=== PATIENT | male | born 1965 | race Caucasian/White ===

== ENCOUNTER → 2017-12-06 12:29 | Outpatient (CLI) | payer OTHER, SELFPAY | DX: Z23 Encounter for immunization (principal) | CPT/HCPCS: 90471; 90686 ==

== ENCOUNTER → 2018-04-16 15:20 | Outpatient (CLI) | payer OTHER, SELFPAY ==
--- NOTE | 2018-04-16 | DI.RAD.S_ITS ---
PROCEDURE: XR HAND RT MIN 3V INDICATIONS: RIGHT HAND PAIN TECHNIQUE: 3 views of the hand(s) acquired. COMPARISON: None. FINDINGS: Bones: There is a fracture involving the fifth metacarpal neck with mild displacement and volar angulation. Carpal bones are normally aligned. No suspicious bony lesions. Soft tissues: No suspicious soft tissue calcifications. Soft tissue swelling. IMPRESSION: Fifth metacarpal neck fracture. Dictated by: Mar Burgess M.D. on 04/16/2018 at 17:07 Approved by: Mar Burgess M.D. on 04/16/2018 at 17:10
== END ==
PROVIDERS: PCP Family Medicine; Visit Provider Family Medicine
DX: M79.641 Pain in right hand (principal); S62.336A Displaced fracture of neck of fifth metacarpal bone, right hand, initial encounter for closed fracture
CPT/HCPCS: 73130

== ENCOUNTER 2019-04-14 21:29 | Emergency (ER) | payer OTHER, SELFPAY ==
[2019-04-14 21:34] VITALS: BP 134/86; PULSE 77; RESP 14; TEMP 36.9; O2SAT 99
--- NOTE | 2019-04-14 21:47 | ED.GENADULT ---
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 He wiped it off immediately and wash day. Also use alcohol. Did not get into his eye. There is no breaks in the skin over the area. He is up-to-date on all of his immunizations. Related Data Allergies Allergy/AdvReac Type Severity Reaction Status Date / Time INGREDIENT: NKDA - NO KNOWN Allergy Unknown Uncoded 06/27/17 11:47 DRUG ALLERGIES Review of Systems Eyes Eyes: Denies blurry vision and Denies change in vision Integumentary/Breasts Skin/Breast: Denies lesions and Denies rash Patient History Medical History Healthy adult (Acute) Social History lives independently: Yes Exam Initial Vital Signs Initial Vital Signs: Vital Signs Temperature 98.4 F 04/14/19 21:34 Pulse Rate 77 04/14/19 21:34 Respiratory Rate 14 04/14/19 21:34 Blood Pressure 134/86 04/14/19 21:34 Pulse Oximetry 99 04/14/19 21:34 Const General: cooperative, healthy appearing, comfortable and well developed Eyes General: appearance normal, both eyes and all related structures Skin Lesions: no lesions Rashes: no rashes Course Orders Ordered: ED Orders 04/14/19 22:00 HIV 1 & 2 Ab/Ag 4th Gen Combo Stat Hepatic (Liver) Panel Stat Hepatitis Acute Panel Stat Vital Signs Vital signs: Vital Signs - 8 hr 04/14/19 21:34 Temperature 98.4 F Pulse Rate 77 Respiratory Rate 14 Blood Pressure 134/86 Pulse Oximetry 99 Medical Decision Making Lab Data Labs: Lab Results 04/14/19 04/14/19 Range/Units 22:00 22:00 Total Bilirubin 0.3 (0.2-1.3) mg/dL Conjugated Bilirubin 0.0 (0.0-0.3) md/dL Unconjugated Bilirubin 0.2 (0.0-1.1) mg/dL AST 34 (17-59) IU/L ALT 38 (<50) IU/L Alkaline Phosphatase 76 (38-126) U/L Total Protein 8.5 H (6.3-8.2) g/dL Albumin 4.6 (3.5-5.0) g/dL Globulin 3.9 (1.7-4.1) g/dL Albumin/Globulin Ratio 1.2 (1.0-2.8) HIV 1&2 Ab/P24 Ag 4thGn Negative (NEGATIVE) MDM Narrative Medical decision making narrative: This is a low risk exposure. The source patient that Anders was exposed to I evaluated here in the ER and so I know that patient's history however the source patient has already been discharged so no blood samples were available to be tested.. The source patient is low risk for HIV/hepatitis. I did discuss this with Anders. Informed him that I would not recommend starting on medications. At the discussion Anders did ask to have blood drawn. L and I paperwork completed. Sabino is given return precautions and follow-up instructions. Discharge Plan Departure Patient Disposition: Home Clinical Impression: Exposure to blood or body fluid Discharge Date/Time: 04/14/19 22:21 Instructions: DI for Accidental Exposure to Body Fluids Activity Restrictions/Additional Instructions: Return to the emergency department for any new or worsening symptoms Referrals: Tommy Green MD [Primary Care Provider] -
[2019-04-14 22:20] LABS: Alanine Aminotransferase 38 IU/L (<50); Albumin 4.6 g/dL (3.5-5.0); Albumin Globulin Ratio 1.2 (1.0-2.8); Alkaline Phosphatase 76 U/L (38-126); Aspartate Aminotransferase 34 IU/L (17-59); Bilirubin Total 0.3 mg/dL (0.2-1.3); Bilirubin Unconjugated 0.2 mg/dL (0.0-1.1); Globulin 3.9 g/dL (1.7-4.1); HEMOLYSIS < 15 (0-50); Total Protein 8.5 g/dL (6.3-8.2)
--- NOTE | 2019-04-14 22:20 | PC.NURSE ---
while starting on IV on an EMS patient, pt contacted a splash of blood on his left cheek and is concerned about possible mm exposure. skin intact
[2019-04-14 23:06] LABS: HIV 1 & 2 Ab/Ag 4th Gen Combo NEGATIVE (NEGATIVE)
[2019-04-18 08:11] LABS: Hepatitis A Antibody IgM NONREACTIVE; Hepatitis Acute Panel Interp 0.08; Hepatitis B Core Antibody IgM NONREACTIVE; Hepatitis B Surface Antigen NONREACTIVE; Hepatitis C Antibody NONREACTIVE
== END 2019-04-14 22:21 | disposition home or self-care (01) ==
PROVIDERS: Emergency Provider Emergency Medicine; PCP Family Medicine
DX: Z77.21 Contact with and (suspected) exposure to potentially hazardous body fluids (principal); Y99.0 Civilian activity done for income or pay
CPT/HCPCS: 36415; 80074; 80076; 87389; 99281; 99283

== ENCOUNTER 2021-04-25 04:37 | Emergency (ER) | payer OTHER, SELFPAY ==
[2021-04-25 04:45] VITALS: BP 153/67; PULSE 97; RESP 16; TEMP 36.9; O2SAT 98; BMI 28.8
[2021-04-25 04:54] VITALS: BP 153/67; PULSE 89; O2SAT 94
[2021-04-25 05:00] VITALS: BP 142/59; PULSE 85; O2SAT 95
--- NOTE | 2021-04-25 05:12 | ED_ITS ---
HPI - Back Pain/Injury General Chief Complaint: Back Pain/Injury Stated Complaint: right flank pain Time Seen by Provider: 04/25/21 05:12 Source: patient History of Present Illness HPI Narrative: 85-year-old gentleman with a history of asthma and allergies presents with right flank pain that started earlier this evening initially 6/10, sharp stabbing pain right flank down into the right groin. He reports no fevers, cough, abdominal pain, diarrhea or constipation. He has had no chest pain no palpitations no dyspnea. Does note a bit of nausea and diaphoresis associated with this severe episodes of colicky pain in the right flank. He has never had kidney stones. He does not notice any dysuria, urinary frequency or hematuria. Related Data Allergies Allergy/AdvReac Type Severity Reaction Status Date / Time INGREDIENT: NKDA - NO KNOWN Allergy Unknown Uncoded 06/27/17 11:47 DRUG ALLERGIES Review of Systems Review of Systems Narrative: Remainder of complete review of systems is otherwise unremarkable except for that included in the HPI. Patient History Medical History (Updated 04/25/21 @ 06:37 by Kayli Arreaga MD) Asthma Social History lives independently: Yes Smoking Status: Never smoker Smoking Status: Never smoker alcohol intake frequency: a few times a week Substance Use Type: does not use Exam Initial Vital Signs Initial Vital Signs: Vital Signs Temperature 98.4 F 04/25/21 04:45 Pulse Rate 97 H 04/25/21 04:45 Respiratory Rate 16 04/25/21 04:45 Blood Pressure 153/67 H 04/25/21 04:45 Pulse Oximetry 98 04/25/21 04:45 General: Healthy appearing, in no acute distress. Able to give a complete and coherent history. Well-nourished well-developed HEENT: Moist mucous membranes, normal sclera with reactive pupils, Neck: No JVD, supple Respiratory: Lungs are clear to auscultation, no wheezing no rales no rhonchi. Full and symmetrical air movement Cardiac: Regular rate and rhythm no murmurs no bruits Abdomen: Soft, nontender, good bowel tones, mild right flank pain Skin: Warm and dry, no rashes Neurologic: Grossly neurologically intact with no obvious asymmetries or abnormalities Extremities: No trauma, well perfused Psych: Cooperative, appropriate insight and affect Course Orders Ordered: ED Orders 04/25/21 05:05 Urine Microscopic Stat 04/25/21 05:23 CT kidney ureter bladder (KUB) Stat 04/25/21 05:30 Complete Blood Count AUTO DIFF Stat Comprehensive Metabolic Panel Stat Discontinued Medications Sodium Chloride (Normal Saline 0.9%) 1,000 mls @ 1,000 mls/hr IV BOLUS ONE Stop: 04/25/21 06:22 Last Admin: 04/25/21 05:46 Dose: 1,000 mls/hr Documented by: PHIL Ketorolac Tromethamine (Ketorolac 30 Mg/Ml Vial) 15 mg IV NOW ONE Stop: 04/25/21 05:24 Last Admin: 04/25/21 05:46 Dose: 15 mg Documented by: PHIL Vital Signs Vital signs: Vital Signs - 8 hr 04/25/21 04:45 04/25/21 04:54 04/25/21 05:00 Temperature 98.4 F Pulse Rate 97 H 89 85 Respiratory Rate 16 Blood Pressure 153/67 H 153/67 H 142/59 H Pulse Oximetry 98 94 95 MDM - Back Pain/Injury Lab Data Result diagrams: 04/25/21 05:30 04/25/21 05:30 Labs: Lab Results 04/25/21 04/25/21 04/25/21 Range/Units 05:05 05:30 05:30 WBC 6.0 (4.5-11.0) X10^3/uL RBC 4.70 (4.5-5.9) X10^6/uL Hgb 13.1 L (13.5-17.5) g/dL Hct 38.9 L (41-53) % MCV 82.8 (80-100) fL MCH 28.0 (26-34) PG MCHC 33.8 (30-36) % RDW 14.6 (11.6-14.8) % Plt Count 261 (150-400) X10^3/uL Neut % (Auto) 60.8 (50-75) % Lymph % (Auto) 25.5 (25-40) % [place] % (Auto) 7.7 (3-14) % Eos % (Auto) 5.6 H (2-4) % Baso % (Auto) 0.4 (0-2) % Neut # (Auto) 3600 (4643-1182) /uL Lymph # (Auto) 1500 (4037-8062) /uL [place] # (Auto) 500 (0-900) /uL Eos # (Auto) 300 (0-450) /uL Baso # (Auto) 0 (0-100) /uL Sodium 140 (137-145) mmol/L Potassium 3.6 (3.4-5.1) mmol/L Chloride 107 (98-107) mmol/L Carbon Dioxide 27 (22-32) mmol/L BUN 17 (9-20) mg/dL Creatinine 1.12 (0.66-1.25) mg/dL Estimated GFR > 60.0 (>60) mL/min BUN/Creatinine Ratio 15.2 (6-22) Glucose 187 H (70-100) mg/dL Calcium 9.4 (8.4-10.2) mg/dL Total Bilirubin 0.4 (0.2-1.3) mg/dL AST 33 (17-59) IU/L ALT 35 (<50) IU/L Alkaline Phosphatase 72 (38-126) U/L Total Protein 7.6 (6.3-8.2) g/dL Albumin 4.1 (3.5-5.0) g/dL Globulin 3.5 (1.7-4.1) g/dL Albumin/Globulin Ratio 1.2 (1.0-2.8) Urine RBC 0-1/hpf (0-5/HPF) Urine WBC 0-1/hpf (0-5/HPF) Ur Squamous Epith Cells 0-1 /hpf (0-5/HPF) Amorphous Sediment 3+ Urine Bacteria None seen (None) Urine Mucus 1+ H (Negative) Ur Culture Indicated? Cult not indicated Urine Dip Bedside Urine Glucose Negative Bedside Urine Bilirubin - Negative Bedside Urine Ketone - Negative Urine Specific [place] 1.015 Bedside Urine Occult Blood - Negative Bedside Urine pH 7 Bedside Urine Protein +/- 15 Bedside Urine Urobilinogen - Negative Bedside Urine Nitrite - Negative Bedside Urine Leukocytes - Negative Esterase Imaging Data CT scan - abdomen/pelvis: Radiologist's Impression: No renal lesion is identified. No significant perinephric or periureteral edema or hydronephrosis. No urinary tract stone is identified. Appendix is well visualized and unremarkable. Impression: Chronic and operative changes noted. No acute of normally identified Dr Codie MD MDM Narrative Medical decision making narrative: 55-year-old gentleman presents with a number of hours of right flank pain that caused him to lose sleep this evening due to the severity. It has progressively gotten better and after L of fluid and Toradol in the emergency department is essentially resolved. Workup is very reassuring. There is no evidence of urinary tract infection or pyelonephritis. CT scan does not suggest kidney stone, hydronephrosis, appendicitis, diverticulitis or other intra-abdominal abnormality. No obvious stool loading to suggest that constipation would be causing this pain. Lab results as well as CT results reviewed with patient. Discussed with him the possibility that this could end up being a zoster prodrome. Recommended that he be discharged home and if symptoms improve and resolve all is well. If symptoms worsen, change or he does in fact begin to develop a vesicular rash he will need to come back to the emergency department for further evaluation. Questions are answered and he is safe for home discharge Discharge Plan Departure Patient Disposition: Home Clinical Impression: Acute flank pain Instructions: DI for Abdominal Pain-Adult, DI for Muscle Strain Activity Restrictions/Additional Instructions: Thank you for coming in today Your urine did not suggest of bladder infection or kidney infection. Your lab work is reassuring with normal renal function, no left light abnormalities and no signs of significant infection. Your CT scan is equally reassuring with no evidence of kidney stone, appendicitis or other intra-abdominal abnormality that would explain the pain that you are experiencing You do not currently have any skin abnormalities however, shingles consumptive times present with significant pain before the rash develops. Please keep an eye on this area watching for a red vesicular rash. If you symptoms worsen, change or you develop new findings, please return to the emergency department and I am happy to re-evaluate Referrals: Tommy Green MD [Primary Care Provider] -
--- NOTE | 2021-04-25 05:23 | DI.CT.S_ITS ---
PROCEDURE: CT KIDNEY URETER BLADDER (KUB) INDICATIONS: Right flank pain TECHNIQUE: Axial sections were acquired from the lung bases to the pubic symphysis. Coronal and sagittal reformats were performed. For radiation dose reduction, the following was used: automated exposure control, adjustment of mA and/or kV according to patient size. COMPARISON: None. FINDINGS: Image quality: Excellent. Lung bases: Lung bases are clear. Small hiatal hernia. Heart: No significant findings. URINARY: Right Kidney: No stones or hydronephrosis. Right Ureter: No hydroureter. Left Kidney: No stones or hydronephrosis. Left Ureter: No hydroureter. Bladder: Normal wall thickness. No stones. ABDOMEN: Liver: Normal size. Mild hepatic steatosis. Small indeterminate hepatic hypodensities are seen, most likely cysts. Gallbladder: Surgically removed. Biliary ducts: Unremarkable. Pancreas: Unremarkable. Spleen: Unremarkable. Adrenal Glands: Unremarkable. Stomach and Bowel: Stomach, small bowel loops, and colon are normal in caliber. Diverticulosis. No diverticulitis. Normal appendix. Peritoneum: No abnormal intraperitoneal fluid. No free air. Ventral Wall: No hernia. Abdominal Nodes: No enlarged retroperitoneal or mesenteric lymph nodes. Vessels: Aorta and inferior vena cava are normal in size. PELVIS: Pelvic Organs: Unremarkable. Pelvic Nodes: Unremarkable. Miscellaneous: There is a fat containing left inguinal hernia. Bones: Unremarkable. IMPRESSION: 1. No acute abnormalities in abdomen or pelvis. A cause for right flank pain is not identified. 2. Diverticulosis without diverticulitis. 3. Normal appendix. 4. Cholecystectomy. 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 Dictated by: Mar Burgess M.D. on 04/25/2021 at 7:55 Approved by: Mar Burgess M.D. on 04/25/2021 at 7:58
[2021-04-25 05:35] LABS: Add Manual Diff / Slide Review NO; Basophils Absolute Auto 0 /uL (0-100); Basophils Percent Auto 0.4 % (0-2); Eosinophils Absolute Auto 300 /uL (0-450); Eosinophils Percent Auto 5.6 % (2-4); Hematocrit 38.9 % (41-53); Hemoglobin 13.1 g/dL (13.5-17.5); Lymphocytes Absolute Auto 1500 /uL (1100-4500); Lymphocytes Percent Auto 25.5 % (25-40); Mean Corpuscular HGB Conc 33.8 % (30-36); Mean Corpuscular Volume 82.8 fL (80-100); Monocytes Absolute Auto 500 /uL (0-900); Monocytes Percent Auto 7.7 % (3-14); Neutrophils Absolute Auto 3600 /uL (1500-7000); Neutrophils Percent Auto 60.8 % (50-75); Platelet Count 261 X10^3/uL (150-400); Red Cell Distribution Width 14.6 % (11.6-14.8)
[2021-04-25 05:44] LABS: Alanine Aminotransferase 35 IU/L (<50); Albumin 4.1 g/dL (3.5-5.0); Albumin Globulin Ratio 1.2 (1.0-2.8); Alkaline Phosphatase 72 U/L (38-126); Aspartate Aminotransferase 33 IU/L (17-59); BUN Creatinine Ratio 15.2 (6-22); Bilirubin Total 0.4 mg/dL (0.2-1.3); Blood Urea Nitrogen 17 mg/dL (9-20); Calcium 9.4 mg/dL (8.4-10.2); Carbon Dioxide 27 mmol/L (22-32); Chloride 107 mmol/L (98-107); Estimated Glomerular Filt Rate > 60.0 mL/min (>60); Globulin 3.5 g/dL (1.7-4.1); Glucose 187 mg/dL (70-100); HEMOLYSIS < 15 (0-50); Potassium 3.6 mmol/L (3.4-5.1); Sodium 140 mmol/L (137-145); Total Protein 7.6 g/dL (6.3-8.2)
[2021-04-25 05:45] LABS: Amorphous Sediment Urine 3+; Bacteria Urine None Seen; Culture Indicated Urine Cult Not Indicated; Mucus Urine 1+ (Negative); RBC Urine 0-1/HPF (0-5/HPF); Squamous Epithelial Cell Urine 0-1 /HPF (0-5/HPF); WBC Urine 0-1/HPF (0-5/HPF)
[2021-04-25] MEDS: KETOROLAC 30 MG/ML VIAL 15 MG IV (05:46)
[2021-04-25] MEDS: SODIUM CHLORIDE 0.9% 1,000 ML 1000 ML IV (05:46)
[2021-04-25 06:43] VITALS: BP 131/64; PULSE 79; RESP 18; O2SAT 97
== END 2021-04-25 06:44 | disposition home or self-care (01) ==
PROVIDERS: Emergency Provider Emergency Medicine; PCP Family Medicine
DX: R10.9 Unspecified abdominal pain (principal)
CPT/HCPCS: 36415; 74176; 80053; 81003; 81015; 85025; 96361; 96374; 99284; J1885

== ENCOUNTER → 2022-08-29 10:45 | Outpatient (CLI) | payer OTHER, SELFPAY ==
--- NOTE | 2022-08-29 | DI.RAD.S_ITS ---
PROCEDURE: XR KNEE LT 4V INDICATIONS: KNEE PAIN TECHNIQUE: 4 views of the knee were acquired. COMPARISON: None. FINDINGS: Bones: No fractures or dislocations. [id number] tricompartmental osteoarthritis is seen with joint space narrowing, subchondral sclerosis and marginal osteophyte formation most notably in medial femoral tibial compartment. No suspicious bony lesions. Soft tissues: No significant joint effusion. No suspicious soft tissue calcifications. IMPRESSION: [id number] tricompartmental osteoarthritis. No fracture or dislocation. No significant joint effusion. Dictated by: Pacheco Del Rosario M.D. on 08/29/2022 at 12:52 Approved by: Pacheco Del Rosario M.D. on 08/29/2022 at 12:54
== END ==
PROVIDERS: PCP Family Medicine; Referring Provider Family Medicine; Visit Provider Family Medicine
DX: M25.562 Pain in left knee (principal); M17.12 Unilateral primary osteoarthritis, left knee
CPT/HCPCS: 73564

== ENCOUNTER → 2023-06-04 06:48 | Outpatient (CLI) | payer OTHER, SELFPAY ==
--- NOTE | 2023-06-04 06:49 | DI.ECHO.S_ITS ---
[facility] +---------+ : : [address] : : : : [id number] : : : : Phone: [phone]+ Echocardiogram Report + + :Name: DARIUS MANUEL Study Date: 06/04/2023 Height: 68 in : :[facility] ReadingLocation: Weight: 185 lb : : Gender: Male BSA: 2.0 m2 : :: 1965 Age: 57 yrs BP: 137/84 mmHg: :Reason For Study: MITRAL INSUFFICIENCY : :Ordering Physician: TONYA, : :MICHELE Performed By: Leena Salguero : :Referring: MICHELE CASTANEDA : + + Interpretation Summary Left ventricular ejection fraction is estimated to be .40. There is mild to moderate global hypokinesis of the left ventricle. The right ventricle is mildly dilated. There is mild to moderate mitral regurgitation. The mitral regurgitant jet is eccentrically directed. There is mild aortic regurgitation. There is trace tricuspid regurgitation. Procedure: A two-dimensional transthoracic echocardiogram with color flow and Doppler was performed. The study quality was technically adequate. There is no prior echocardiogram noted for this patient. The heart rate ranged between 77-87 bpm during the study. Left Ventricle: The left ventricle is normal in size and wall thickness. Left ventricular ejection fraction is estimated to be .40. There is mild to moderate global hypokinesis of the left ventricle. Diastolic parameters suggest a relaxation abnormality of the left ventricle, consistent with probable normal filling pressures. Right Ventricle: The right ventricle is mildly dilated. The right ventricular systolic function is normal. Atria: The left atrial size is normal. Right atrial size is normal. There is no Doppler evidence for an interatrial shunt. Mitral Valve: The mitral valve leaflets appear borderline thickened, but open well. There is mild to moderate mitral regurgitation. The mitral regurgitant jet is eccentrically directed. Aortic Valve: The aortic valve is trileaflet. The aortic valve opens well. There is no aortic valve stenosis. There is mild aortic regurgitation. Tricuspid Valve: The tricuspid valve is normal in structure and function. There is trace tricuspid regurgitation. The right ventricular systolic pressure is estimated to be at least 20 mmHg based on an estimated right atrial pressure of 3 mm Hg. Pulmonic Valve: The pulmonic valve leaflets are thin and pliable; valve motion is normal. There is mild pulmonic regurgitation. Great Vessels: The aortic root is normal size. The dimensions of the ascending aorta are normal. The IVC is of normal diameter and collapses greater than 50% with a sniff. This suggests a low right atrial pressure of 3 mm Hg. Pericardium/ Pleura There is no pericardial effusion. There is no pleural effusion. MMode/2D Measurements & Calculations LVIDd: 5.9 cm LVOT diam: 2.2 cm LVIDs: 4.4 cm Ao root diam: 3.2 cm FS: 24.6 % asc Aorta Diam: 3.1 cm EPSS: 1.2 cm Ao Arch Diam (Prox Trans): 2.9 cm IVSd: 0.95 cm LVPWd: 0.74 cm LV joseph. diameter/BSA (cm/m^2): 3.0 LV sys. diameter/BSA (cm/m^2): 2.2 LA A2 area: 21.2 cm2 RA long axis: 5.4 cm LA A4 area: 17.5 cm2 RA area: 19.4 cm2 LA length (vol): 5.3 cm RA vol: 59.5 ml LA vol: 59.0 ml RA : 30.1 ml/m2 LA vol index: 29.8 ml/m2 IVC diam: 1.5 cm RVD1 (basal): 4.3 cm RVD2 (mid): 3.5 cm TAPSE: 2.0 cm Doppler Measurements & Calculations Ao V2 max: 122.0 cm/sec LVOT Max [place]: 77.5 cm/sec Ao V2 mean: 92.1 cm/sec LV V1 max P.4 mmHg Ao max P.0 mmHg LV V1 VTI: 14.8 cm Ao mean P.6 mmHg SPENCER(I,D): 2.4 cm2 Ao V2 VTI: 23.9 cm SPENCER(V,D): 2.4 cm2 sev ratio: 0.62 SPENCER indexed to BSA (cm^2/m^2): 1.2 MV E max eugene: 79.5 cm/sec TR max eugene: 203.9 cm/sec MV A max [place]: 70.4 cm/sec TR max P.6 mmHg MV E/A: 1.1 PA V2 max: 119.8 cm/sec Med Peak E' [place]: 9.1 cm/sec PA V2 mean: 84.1 cm/sec E/E' med: 8.7 PA mean P.2 mmHg Lat Peak E' [place]: 11.0 cm/sec PA pr(Accel): 44.7 mmHg E/E' lat: 7.2 E/e' average: 8.0 MV dec time: 0.19 sec MR ERO: 0.08 cm2 MR PISA: 1.4 cm2 SV(LVOT): 57.0 ml MR flow rate: 46.4 cm3/sec MR PISA radius: 0.46 cm Reading Physician:12:36 PM
== END ==
LOC: ECHO 06:48
PROVIDERS: PCP Family Medicine; Referring Provider Family Medicine; Visit Provider Family Medicine
DX: I08.0 Rheumatic disorders of both mitral and aortic valves (principal)
CPT/HCPCS: 93306

== ENCOUNTER → 2024-06-04 15:05 | Outpatient (CLI) | payer OTHER, SELFPAY ==
[2024-06-04 16:14] LABS: Add Manual Diff / Slide Review NO; Basophils Absolute Auto 0 /uL (0-100); Basophils Percent Auto 0.5 % (0-2); Eosinophils Absolute Auto 300 /uL (0-450); Hematocrit 38.8 % (41-53); Hemoglobin 13.2 g/dL (13.5-17.5); Lymphocytes Absolute Auto 2000 /uL (1100-4500); Lymphocytes Percent Auto 30.9 % (25-40); Mean Corpuscular HGB Conc 34.1 % (30-36); Mean Corpuscular Hemoglobin 29.2 PG (26-34); Mean Corpuscular Volume 85.5 fL (80-100); Monocytes Absolute Auto 600 /uL (0-900); Monocytes Percent Auto 9.6 % (3-14); Neutrophils Absolute Auto 3500 /uL (1500-7000); Platelet Count 281 X10^3/uL (150-400); Red Blood Cell Count 4.53 X10^6/uL (4.5-5.9); Red Cell Distribution Width 14.4 % (11.6-14.8); White Blood Cell Count 6.3 X10^3/uL (4.5-11.0)
[2024-06-04 16:40] LABS: Alanine Aminotransferase 33 IU/L (<50); Albumin 4.6 g/dL (3.5-5.0); Albumin Globulin Ratio 1.5 (1.0-2.8); Alkaline Phosphatase 67 U/L (38-126); Aspartate Aminotransferase 31 IU/L (17-59); BUN Creatinine Ratio 19.6 (6-22); Bilirubin Total 0.4 mg/dL (0.2-1.3); Blood Urea Nitrogen 18 mg/dL (9-20); Calcium 9.8 mg/dL (8.4-10.2); Carbon Dioxide 26 mmol/L (22-32); Chloride 103 mmol/L (98-107); Estimated Glomerular Filt Rate > 60 mL/min (>60); Globulin 3.1 g/dL (1.7-4.1); Glucose 114 mg/dL (80-110); HEMOLYSIS < 15 (0-50); Magnesium 1.5 mg/dL (1.6-2.3); Potassium 3.8 mmol/L (3.4-5.1); Sodium 142 mmol/L (137-145); Total Protein 7.7 g/dL (6.3-8.2)
[2024-06-04 16:56] LABS: Free T4, Direct Thyroxine 0.79 ng/dL (0.78-2.19)
[2024-06-04 17:10] LABS: Thyroid Stimulating Hormone 0.823 uIU/mL (0.47-4.68)
== END ==
PROVIDERS: PCP Family Medicine; Referring Provider Internal Medicine; Visit Provider Internal Medicine
DX: I42.8 Other cardiomyopathies (principal); I50.21 Acute systolic (congestive) heart failure
CPT/HCPCS: 36415; 80053; 83735; 84439; 84443; 85025

== ENCOUNTER → 2024-09-21 11:26 | Outpatient (CLI) | payer OTHER, SELFPAY ==
[2024-09-21 12:10] LABS: Influenza A - CEPHEID Flu A NEGATIVE (NEGATIVE); Influenza B - CEPHEID Flu B NEGATIVE (NEGATIVE)
[2024-09-21 12:11] LABS: COVID-19 CEPHEID 4-PLEX PCR Negative (Negative)
== END ==
PROVIDERS: PCP Family Medicine; Visit Provider Chiropractor
DX: R05.1 Acute cough (principal)
CPT/HCPCS: 87637